=== PATIENT | female | born 1940 | race Caucasian/White ===

== ENCOUNTER 2025-01-25 12:40 | Emergency (ER) | payer MEDICARE, SELFPAY ==
[2025-01-25 12:42] VITALS: BP 138/78
--- NOTE | 2025-01-25 14:20 | ED.GENMED ---
History of Present Illness
General
Chief Complaint: Head Injury
Source: patient and family (daughter)
Time Seen by Provider: 01/25/25 14:00
History of Present Illness
History of Present Illness:
84-year-old female presents to the emergency room for evaluation after suffering a fall at home. Patient is the caregiver for her who has dementia. She was bending over to adjust his socks when she lost her balance and fell backwards
striking back of her head. She was complaining of occipital area discomfort as well as some neck pain. Patient does take Eliquis. 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
required 'shaving' of her skull'. 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 Her daughter states that the area was bleeding a bit more when
she first saw her at the house but now seems to be at its baseline level. Patient also complaining of some right-sided low back pain which has been present again due to activities of caring for her but this seems to worsen today. Daughter
states the patient has medication at home for this back pain which she does not take. Daughter also indicates that they have offered to have her parents move in with them to provide support but patient does not want to limit them and prefers to
care for her alone at home.
Phy Exam
Physical Exam
Physical Exam:
General: Awake, Alert, Oriented X3. High BMI. Appears chronically ill
Vitals: unremarkable
Head: The entire scalp has some hypertrophic skin and sloughing of skin with areas of oozing of blood. No laceration.
Eyes: Pupils equal, EOMI
Throat: Airway intact, no exudates
Neck: Trachea midline, tenderness palpation lower cervical spine
Lungs: Clear and equal b/l
Heart: Regular rate, no murmurs
Abd: Soft, Nontender, No pulsatile mass
Neuro: No focal weakness
Skin: Warm, dry, no rash
Extremities: pulses equal b/l, no edema
Course
Orders/Labs/Results
Orders:
Orders
01/25/25 12:54
CT Cervical Spine W/o Iv Contr Urgent
Comment:
Reason For Exam: fall
CT Head W/o Iv Contrast Urgent
Comment:
Reason For Exam: fall
Vital Signs
Initial and Last Documented VS:
Initial Vital Signs
Temp Pulse Resp BP Pulse Ox
97.4 F 58 18 138/78 99
01/25/25 12:42 01/25/25 12:42 01/25/25 12:42 01/25/25 12:42 01/25/25 12:42
Last Documented Vital Signs
Temp Pulse Resp BP Pulse Ox
98.5 F 82 20 136/81 96
01/25/25 14:47 01/25/25 14:47 01/25/25 14:47 01/25/25 14:47 01/25/25 14:47
MDM/Problems Addressed
Differential Diagnosis Includes:
Contusion, subdural, cervical spine fracture, cervical strain
MDM/Problems Addressed:
Patient presents after a fall striking the back of her head. CT of the head and cervical spine showed no acute abnormality. Patient does have some oozing from very spots on her scalp which is chronic due to radiation, Mohs procedure for squamous
cell carcinoma. Patient is at her baseline. She is stable for discharge home.
*Radiology
Radiology exam reviewed: radiology read reviewed
*Pulse Oximetry
Patient hypoxic: no
*Critical Care Note
Total Time (30-74mins, 75-104mins- exclusive of procedures): Not Applicable
ED Attending Note
-
Portions of this chart may have been created with voice recognition software.� Occasional wrong word or��sound alike� substitutions may have occurred due to the inherent limitations of voice recognition software.
Discharge Plan
Departure
Patient Disposition: Home (Routine Discharge)
Date of Disposition: 01/25/25
Time of Disposition: 15:10
Patient with high blood pressure during this ER visit?: No
Condition: Good
Discharge Problem:
Head injury, Cervical strain
Instructions: Head Injury in Adults (DC), Cervical Sprain ED
Prescriptions:
New
cyclobenzaprine 10 mg tablet
10 mg PO TID PRN (Reason: back pain) Qty: 14 0RF
Referrals:
Jenyn Dee MD [Family Provider] -
Interventions
Interventions:
*Risk Screen - Suicide Last Done: 01/25/25 12:42
*General Assessment Last Done: 01/25/25 12:42
*Neglect/Abuse Screening Last Done: 01/25/25 14:47
*ED- Fall Risk Assessment Last Done: 01/25/25 14:47
*ED COVID-19 Vaccine History Last Done: 01/25/25 14:47
*Nursing Disposition Last Done: 01/25/25 15:38
ED- Neurological Assessment Last Done: 01/25/25 14:47
ED-Skin Assessment Last Done: 01/25/25 14:47
Discharge Date and Time
Discharge Date/Time: 01/25/25 15:38
Print Language: SPANISH
[2025-01-25 14:47] VITALS: BP 136/81; BMI 30.7
== END 2025-01-25 15:38 | disposition home or self-care (01) ==
LOC: EMR 12:40
PROVIDERS: EMERGENCY PHYSICIAN Emergency Medicine; FAMILY PHYSICIAN Internal Medicine
DX: S09.90XA Unspecified injury of head, initial encounter (principal); S16.1XXA Strain of muscle, fascia and tendon at neck level, initial encounter; Y92.009 Unspecified place in unspecified non-institutional (private) residence as the place of occurrence of the external cause; C44.42 Squamous cell carcinoma of skin of scalp and neck
CPT/HCPCS: 99284; 70450; 72125

== ENCOUNTER 2025-02-14 10:17 | Emergency (ER) | payer MEDICARE, OTHER, SELFPAY ==
[2025-02-14 11:24] VITALS: BP 135/60
[2025-02-14] MEDS: TYLENOL 1000 MG PO (11:54)
[2025-02-14 12:00] VITALS: BP 141/72
[2025-02-14 12:21] LABS: % Basophils 0.8 % (0-2); % Eosinophils 2.2 % (0-6); % Immature Granulocytes 0.2 % (0-0.5); % Lymphocytes 34.5 % (20.5-51.1); % Monocytes 8.9 % (1.7-9.3); % Neutrophils 53.4 % (42.2-75.2); Absolute Eosinophils 0.1 10^3/uL (0-0.7); Absolute Lymphocytes 1.7 10^3/uL (1.2-3.4); Absolute Monocytes 0.4 10^3/uL (0.1-0.6); Absolute Neutrophils 2.7 10^3/uL (1.4-6.5); Mean Corp Hgb Conc. 33.3 g/dL (33.0-37.0); Mean Corpuscular Hgb 32.3 pg (27.0-31.0); Mean Corpuscular Volume 96.8 fL (81.0-99.0); Nucleated Red Blood Cells % 0 %; Platelet Count 150 10^3/uL (130-400); Red Blood Cell Count 4.03 10^6/uL (4.20-5.40); Red Cell Dist. Width 12.8 % (11.5-14.5)
[2025-02-14 12:26] LABS: INR 1.26
[2025-02-14 12:27] LABS: APTT 29.2 Sec (23.4-35.0)
[2025-02-14 12:59] LABS: Blood Urea Nitrogen 23 mg/dl (7-17); Calcium 9.2 mg/dl (8.4-10.2); Carbon Dioxide 28 mmol/L (22-30); Chloride 108 mmol/L (98-107); Glucose 105 mg/dl (70-99); Sodium 141 mmol/L (135-145); eGFR 49.86
--- NOTE | 2025-02-14 13:55 | ED.GENMED ---
History of Present Illness
General
Chief Complaint: Fall
Source: patient and family
Exam Limitations: none
Time Seen by Provider: 02/14/25 11:00
Nursing documentation reviewed up to this point in time: agreed with
Course
Orders/Labs/Results
Orders:
Orders
02/14/25 11:18
Vital Signs- Treatment ONCE
Frequency: Once
Comment: BP
02/14/25 11:20
CT Chest/abd/pel W Iv Cont Urgent
Comment:
Reason For Exam: R sided flank pain afer fall; on eliquis
Acetaminophen [Tylenol] 1,000 mg PO NOW STA
02/14/25 11:48
Complete Blood Count/With Diff Urgent
PTT Urgent
Prothrombin Time Urgent
02/14/25 12:30
Basic Metabolic Panel Urgent
02/14/25 14:30
Potassium Urgent
02/14/25 16:04
Diazepam [Valium] 2 mg PO NOW STA
Abnormal Lab Results
02/14/25 02/14/25
11:48 12:30
RBC 4.03 L 10^6/uL
(4.20-5.40)
MCH 32.3 H pg
(27.0-31.0)
PT 16.0 H Sec
(11.4-14.6)
Chloride 108 H mmol/L
(98-107)
BUN 23 H mg/dl
(7-17)
Creatinine 1.1 H mg/dL
(0.6-1.0)
Glucose 105 H mg/dl
(70-99)
02/14/25 11:48
Vital Signs
Initial and Last Documented VS:
Initial Vital Signs
Temp Pulse Resp Pulse Ox
36.7 C 57 16 96
02/14/25 10:25 02/14/25 10:25 02/14/25 10:25 02/14/25 10:25
Last Documented Vital Signs
Temp Pulse Resp BP Pulse Ox
36.7 C 82 20 140/72 98
02/14/25 10:25 02/14/25 15:03 02/14/25 15:03 02/14/25 15:03 02/14/25 15:03
MDM/Problems Addressed
Differential Diagnosis Includes:
see MDM
MDM/Problems Addressed:
Note:
CHIEF COMPLAINT(S)
Fall with resultant back and abdominal pain.
HISTORY OF PRESENT ILLNESS
The patient is an 84-year-old female who experienced a fall on Monday night when she tripped over a rug at home, landing predominantly on her knees. Her daughter, who witnessed the event, noted that she caught herself on a soft leather ottoman
before falling. The patient reports pain in the mid-back, which radiates around to the abdomen and worsens with movement, but not breathing. She describes, 'When I move, it goes around here and into my stomach.' The pain does not significantly
change with rest or deep breathing. This incident follows a previous fall approximately seven weeks earlier, which necessitated an emergency room visit and a computed tomography (CT) scan showing no acute intracranial bleeding. The patient is on
anticoagulation medication, Apixaban, due to a history of atrial fibrillation. Her recent medical history includes a craniectomy for a squamous cell carcinoma (skin cancer) on her head and subsequent radiation therapy. The patient is not on
chemotherapy. She has expressed concern about her inability to lift her right leg adequately due to pain and reports that pain increases when she attempts certain movements. Her pain was severe enough yesterday that she applied Lidocaine. She relies
on Tylenol for symptom management due to the sedative effects experienced previously with Tramadol.
ADDITIONAL HISTORY OBTAINED FROM SOURCES OTHER THAN THE PATIENT
The patients daughter, who was present during the visit, provided details of the fall, describing how the patient tripped and landed on her knees, whereas her upper body was cushioned by a soft leather ottoman.
CHRONIC MEDICAL CONDITIONS SIGNIFICANTLY AFFECTING CARE
- Atrial fibrillation managed with Apixaban.
- Recent postoperative and radiation therapy for squamous cell carcinoma.
- History of craniectomy.
SOCIAL DETERMINANTS AFFECTING HEALTH
The patient is a primary caregiver for her , who suffers from dementia, adding to her physical strain, especially when lifting him, which exacerbates her back pain.
REVIEW OF SYSTEMS
- Musculoskeletal: Reports back pain radiating to the abdomen, worsens with movement.
- Neurologic: Unable to adequately lift right leg without significant discomfort.
PHYSICAL EXAM
- Musculoskeletal: Pain noted in the mid-back radiating to the abdomen, particularly when pressure is applied.
- Neurologic: No mention of deficits, but the patient experiences pain upon attempting to move the right leg.
Nursing notes reviewed and vital signs reviewed.
PLAN
- Order a CT scan of the abdomen and pelvis to evaluate for possible internal bleeding or injury given her anticoagulation therapy.
- Suggest pain management with Extra Strength Tylenol due to tolerability over stronger medications such as Tramadol, which has been previously tried.
- Engage the patients assistance with repositioning in bed, aiming to improve comfort and stability during the stay.
DIFFERENTIAL DIAGNOSIS
The Differential Diagnosis includes, in no particular order and is not limited to:
1. Musculoskeletal strain or injury.
2. Vertebral compression fracture.
3. Abdominal hematoma due to anticoagulant therapy.
4. Intercostal muscle strain.
5. Lumbar radiculopathy.
6. Rib fracture.
7. Neuropathic pain due to thoracic nerve impingement.
8. Costochondritis.
9. Abdominal aortic aneurysm.
10. Herpes Zoster (shingles), without visible rash.
CARE-UPDATE
02/14/25 - 16:05
Noted that the patient�s creatinine level is slightly elevated at 1.1, which may indicate mild dehydration, though this could also be the patient�s baseline. The potassium level was not initially obtained but has since been redrawn. The CT scan
ruled out fractures or significant trauma, but incidentally found a lung nodule and coronary arMDMtery calcifications, warranting follow-up. Degenerative changes noted in the thoracic spine and pubic symphysis, with arthritis present in the lumbar
spine, may explain the patient�s pain and suggest a musculoskeletal etiology. The patient is advised to try a low dose of Valium (2 mg) for muscle relaxation in combination with Tylenol for pain management, especially before bedtime, with the
flexibility to adjust based on response and tolerance. Tramadol remains an alternative if Valium is ineffective, and the use of a walker is considered for added support during ambulation. The patient declined hospital admission and was instructed to
monitor symptoms, with a focus on the balance between pain relief and avoiding excessive sedation.
ED Attending Note
-
Portions of this chart may have been created with voice recognition software.� Occasional wrong word or��sound alike� substitutions may have occurred due to the inherent limitations of voice recognition software.
Discharge Plan
Departure
Patient Disposition: Home (Routine Discharge)
Date of Disposition: 02/14/25
Time of Disposition: 16:09
Patient with high blood pressure during this ER visit?: Yes
Condition: Fair
Covid-19: Not Applicable
Discharge Problem:
Fall, Flank pain, Musculoskeletal pain
Instructions: Preventing falls in adults, Flank pain - ED discharge instructions
Prescriptions:
New
diazepam [Valium] 2 mg tablet
2 mg PO TID PRN (Reason: muscle spasm) Qty: 10 0RF
No Action
cyclobenzaprine 10 mg tablet
10 mg PO TID PRN (Reason: back pain) Qty: 14 0RF
Referrals:
Jenny Dee MD [Family Provider, General] - Follow up in 2-3 days
Activity Restrictions/Additional Instructions:
Your CAT scan shows some incidental findings which were reviewed with you but significantly you do have arthritis in your lower thoracic and your upper lumbar and lower lumbar spine as well as your hips on both sides and your SI joints. This could
have been exacerbated when you had your fall. Try Tylenol 2 extra strength 3 times a day for the next 3 to 5 days. For pain control additionally you could try Valium 2 mg 2-3 times a day. This is a muscle relaxer and can cause drowsiness. Please
be aware of that. If it does not affect you at all and you have no relief of symptoms you can return to using your own tramadol but also be aware that that can cause drowsiness. Do not combine both medications as this can increase your fall risk.
Use your walker for the next couple days to make sure you can get around more stably.
Interventions
Interventions:
*Risk Screen - Suicide Last Done: 02/14/25 10:25
*Neglect/Abuse Screening Last Done: 02/14/25 10:25
*ED- Fall Risk Assessment Last Done: 02/14/25 10:58
ED-Musculoskeletal Assessment Last Done: 02/14/25 10:58
ED- Neurological Assessment Last Done: 02/14/25 10:58
ED-Skin Assessment Last Done: 02/14/25 10:58
Discharge Date and Time
Print Language: LUXEMBOURGER
[2025-02-14 15:03] VITALS: BP 140/72
[2025-02-14] MEDS: VALIUM 2 MG PO (16:13)
[2025-02-14 16:22] VITALS: BP 132/72
== END 2025-02-14 16:35 | disposition home or self-care (01) ==
LOC: EMR 10:17
PROVIDERS: Physician Assistant; EMERGENCY PHYSICIAN Emergency Medicine; FAMILY PHYSICIAN Internal Medicine
DX: R10.9 Unspecified abdominal pain (principal); M79.18 Myalgia, other site; W01.0XXA Fall on same level from slipping, tripping and stumbling without subsequent striking against object, initial encounter; F03.90 Unspecified dementia, unspecified severity, without behavioral disturbance, psychotic disturbance, mood disturbance, and anxiety; I48.91 Unspecified atrial fibrillation; Z79.01 Long term (current) use of anticoagulants; Z85.828 Personal history of other malignant neoplasm of skin; Z92.3 Personal history of irradiation
CPT/HCPCS: 99284; 71260; 74177; 80048; 85025; 85610; 85730; Q9967

== ENCOUNTER 2025-06-19 18:10 | Inpatient (IN) | payer MEDICARE, OTHER, SELFPAY ==
[2025-06-19] VITALS (10 sets, daily range): BP systolic 87–201; BP diastolic 40–136; BMI 43.1; BMI 42.1
--- NOTE | 2025-06-19 15:52 | ED.GENMED ---
History of Present Illness
General
Chief Complaint: Skin Problem
Source: patient and family
Exam Limitations: none
Time Seen by Provider: 06/19/25 14:47
Nursing documentation reviewed up to this point in time: agreed with
History of Present Illness
History of Present Illness:
Patient with history of multiple cellulitis of lower leg and lymphedema, presents to ED secondary to worsening right lower leg infection, despite taking 3 different antibiotics (Flagyl, ciprofloxacin, and doxycycline), as ordered by her primary care
physician x 6 days. Denies fever or chills. Denies nausea or vomiting. Patient reports decreased appetite. Patient states that her leg needed suture repair 2 weeks ago after she tripped and fell on the steps.
Past History
Past History
ED Past Medical History: Arrthythmia, CHF, HTN, Hypercholesterolemia and NIDDM
Social History
Tobacco: Non-smoker
Alcohol: None
Drug: None
Personal: Single
Living: with family
Review of Systems
Review of Systems
Allergies reviewed?: Yes
All Other Systems: ROS reviewed and negative except as documented in HPI and ROS
Constitutional: Reports no symptoms
ABD/GI: Reports no symptoms
Musculoskeletal: Reports no symptoms
Skin: Reports other (leg infection)
Neurological: Reports no symptoms
Phy Exam
Physical Exam
Physical Exam:
Physical Exam
General: mild distress, not acutely ill. afebrile
Head: nc/at. eomi
Neck: supple. no meningeal signs.
Abdomen: normal bowel sounds. not tender.
Neuro: alert and oriented x 3. no focal neurological deficits
Skin: RLE: along distal tibia, sutures in place with surrounding erythema/blister formation, along with minimal serosanguineous drainage.
Psychiatric: well kept. interactive and cooperative
Extremities: no edema. no calf tenderness.
Course
Orders/Labs/Results
Orders:
Orders
06/19/25 15:43
Complete Blood Count/With Diff Urgent
Comprehensive Metabolic Panel Urgent
Lactic Acid Q4H
Comment: CANCEL 2nd LACTIC ACID IF 1st LACTIC ACID IS LESS THAN 2
Blood Culture Q30M
JAMAL Source: Blood/Venous
Specimen Description:
Blood Culture Q30M
JAMAL Source: Blood/Venous
Specimen Description:
06/19/25 16:12
Vancomycin [Vancocin] 2,000 mg 0.9% Sodium Chloride 500 ml [Nss] 500 ml IV NOW
06/19/25 17:39
Admit/Transfer Patient As Directed
Co-Sign Provider:
Level of Care: Inpatient admission
Assign to:: Medical/Surgical
Physician / Group: Coleen
Diagnosis: Right lower extremity wound, cellulitis
Reason for Hospitalization: IV abx, surgical consult
Expected length of stay greater than two midnights?: Yes
ELOS- Estimated Length of Stay in days: 3
I certify the patient meets the requirements for IP care: Yes
PRN Pain Medication Management As Directed
May give lesser potent ordered pain med per pt: Yes
preference::
Protocol:: Medication orders for pain may be administered in a
manner that supports deferring to patient preference
when the pt is:
- Requesting an ordered lesser potent pain medication.
Least to most potent pain medications are defined
as: acetaminophen < NSAID < tramadol < opioids
(morphine, oxycodone, hydromorphone).
- Requesting a lesser dose of the same medication IF
ORDERED.
- Requesting a less intrusive route of administration
if both routes are prescribed by the provider (PO <
IV).
06/19/25 17:50
Code Status As Directed
Resuscitation Status: Full Code
Abnormal Lab Results
06/19/25
15:43
RBC 4.10 L 10^6/uL
(4.20-5.40)
MCH 32.0 H pg
(27.0-31.0)
BUN 24 H mg/dl
(7-17)
Creatinine 1.4 H mg/dL
(0.6-1.0)
Glucose 131 H mg/dl
(70-99)
06/19/25 15:43
06/19/25 15:43
Vital Signs
Initial and Last Documented VS:
Initial Vital Signs
Temp Pulse Resp BP Pulse Ox
98.1 F 58 16 137/91 98
06/19/25 12:55 06/19/25 12:55 06/19/25 12:55 06/19/25 12:55 06/19/25 12:55
Last Documented Vital Signs
Temp Pulse Resp BP Pulse Ox
98.1 F 59 16 118/40 97
06/19/25 12:55 06/19/25 17:39 06/19/25 17:39 06/19/25 19:00 06/19/25 19:00
MDM/Problems Addressed
MDM/Problems Addressed:
History and exam concerning for right lower leg cellulitis, failing outpatient therapy. Patient also may benefit from suture removal and wound debridement, during treatment via iv abx
*Pulse Oximetry
SaO2: 98
Oxygen Mode of Delivery: Room air
Patient hypoxic: no
*Critical Care Note
Total Time (30-74mins, 75-104mins- exclusive of procedures): Not Applicable
ED Attending Note
-
Portions of this chart may have been created with voice recognition software.� Occasional wrong word or��sound alike� substitutions may have occurred due to the inherent limitations of voice recognition software.
Discharge Plan
Departure
Patient Disposition: Admit
Date of Disposition: 06/19/25
Time of Disposition: 16:03
Admit to: Med/Surg
Presentation/result/management discussed w/ accepting MD/DO: Hospitalist
Discharge Problem:
Cellulitis of leg
Interventions
Interventions:
*Risk Screen - Suicide Last Done: 06/19/25 12:55
*General Assessment Last Done: 06/19/25 15:40
*Neglect/Abuse Screening Last Done: 06/19/25 12:55
*ED- Fall Risk Assessment Last Done: 06/19/25 15:40
*ED COVID-19 Vaccine History Last Done: 06/19/25 15:40
*ED Influenza Vaccine History Last Done: 06/19/25 15:40
ED-Skin Assessment Last Done: 06/19/25 16:49
[2025-06-19 15:55] LABS: Hematocrit 39.7 % (37.0-47.0); Hemoglobin 13.1 g/dL (12.0-16.0); Mean Corp Hgb Conc. 33.0 g/dL (33.0-37.0); Mean Corpuscular Volume 96.8 fL (81.0-99.0); Nucleated Red Blood Cells % 0 %; Platelet Count 194 10^3/uL (130-400); Red Cell Dist. Width 13.0 % (11.5-14.5)
[2025-06-19 16:11] LABS: ALT (SGPT) 28 U/L (0-35); AST (SGOT) 34 U/L (14-36); Albumin 3.9 g/dl (3.5-5.0); Alkaline Phosphatase 91 U/L (38-126); Blood Urea Nitrogen 24 mg/dl (7-17); Calcium 9.5 mg/dl (8.4-10.2); Carbon Dioxide 30 mmol/L (22-30); Chloride 102 mmol/L (98-107); Estimated Creatinine Clearance 39 ml/min; Glucose 131 mg/dl (70-99); Potassium 4.1 mmol/L (3.5-5.1); Sodium 138 mmol/L (135-145); Total Protein 6.9 g/dl (6.3-8.2); eGFR 37.33
[2025-06-19] MEDS: VANCOCIN 540 MG IV (16:29)
--- NOTE | 2025-06-19 16:38 | HPS.HSE ---
Addendum entered and electronically signed by Flaquito Horne MD 06/19/25 18:22:
This is an addendum to the H&P written by Danielle Nevarez on 06/19/2025. �Patient seen and examined independently with PA.
84-year-old female past medical history of paroxysmal atrial fibrillation on Eliquis, chronic HFpEF, hypertension, hyperlipidemia, diabetes, CKD 3, obesity, recent resection of squamous cell carcinoma of scalp status post radiation, presenting with
right lower extremity wound and infection.
She had a fall 2 weeks ago with injury of the right diaz on stairs with significant bleeding. �She was taken to [place] and got 17 stitches. �She saw her primary care physician last week and was started doxycycline, ciprofloxacin, and Flagyl.
�Patient with blisters on the right diaz and redness. �She was recommend to come to the emergency room by wound care. �No fever.
Patient with nonhealing wound/ blisters on the right diaz from trauma. �Unclear if truly infected as she received ample course of oral antibiotics.� Continue cefazolin. Hold Eliquis. �General surgery consulted for potential debridement. �Wound care
consulted.
Original Note:
Family Physician
-
Family Physician: NOT KNOW UNKNOWN - PT DOES
Chief Complaint
-
Right Lower Extremity Wound
History of Present Illness
Patient is a 84 y/o female past medical history of atrial fibrillation, heart failure, hypertension, hyperlipidemia, and diabetes who presents with right lower extremity wound. Patient states about 2 weeks ago she feel while going up some stairs.
She hit her leg on step cause a large laceration. She was taken to [facility] where she received 17 stitches to the area. Patient was started on doxycycline, ciprofloxacin and metronidazole on June 13 for cellulitis. Patient was seen
by visiting nurse today who expressed concern that the wound was looking worse. Patient presented to the emergency department for evaluation today. She denies fevers, sweats, or chills.
Medical History
Past Medical History
Past Medical History: Reports Other
Additional Past Medical History:
Paroxysmal Atrial Fibrillation
Chronic HFpEf
Essential Hypertension
Hyperlipidemia
Diabetes Mellitus, Diet-Controlled
CKD Stage IIIB
Squamous Cell Carcinoma of the Scalp s/p Resection and Radiation
Past Surgical History: Reports Other
Additional Past Surgical History:
Lung Hamartoma Removal
Wide Excision of Scalp for squamous cell carcinoma
Social History
Tobacco: Non-smoker
Family History
Family History: Not pertinent
Allergies / Home Medications
Allergies reflects when Allergies were last updated in [facility].
Home Medications with original date entered in [facility]
Allergy/Medication List:
Allergies
Allergy/AdvReac Type Severity Reaction Status Date / Time
IZAIAH Inhibitors Allergy Unknown Verified 06/19/25 13:00
clonidine Allergy Unknown Verified 06/19/25 13:00
cortisone Allergy Unknown Verified 06/19/25 13:00
diltiazem Allergy Unknown Verified 06/19/25 13:00
hydralazine Allergy Unknown Verified 06/19/25 13:00
minoxidil Allergy Unknown Verified 06/19/25 13:00
nifedipine Allergy Unknown Verified 06/19/25 13:00
Sulfa (Sulfonamide Allergy Unknown Verified 06/19/25 13:00
Antibiotics)
sulfamethoxazole (From Allergy Unknown Verified 06/19/25 13:00
Bactrim)
trimethoprim (From Bactrim) Allergy Unknown Verified 06/19/25 13:00
Home Medications
amiodarone 200 mg tablet 200 mg PO DAILY 06/19/25
apixaban 5 mg tablet (Eliquis) 5 mg PO BID 06/19/25
cholecalciferol (vitamin D3) 50 mcg (2,000 unit) tablet (Vitamin D3) 50 mcg PO DAILY 06/19/25
evolocumab 140 mg/mL subcutaneous pen injector (Repatha SureClick) 140 mg SC Q2W 06/19/25
furosemide 20 mg tablet 20 mg PO BID 06/19/25
losartan 100 mg tablet 50 mg PO DAILY 06/19/25
metoprolol succinate 50 mg tablet,extended release 24 hr 50 mg PO HS 06/19/25
spironolactone 25 mg tablet 25 mg PO QPM 06/19/25
Review of Systems
-
A 12 point ROS was completed and negative except as noted: Yes
Constitutional: Denies Fever
Skin: Reports See HPI
Physical Exam
Vital Signs
Vital Signs
Temp Pulse Resp BP Pulse Ox
98.1 F 59 18 136/59 98
06/19/25 12:55 06/19/25 15:40 06/19/25 15:40 06/19/25 15:40 06/19/25 15:58
Physical Exam
General: Comfortable and Conversant
HEENT: Anicteric and Moist mucous membranes
Respiratory: Clear and Non Labored Respirations
Cardiac: S1/S2 and Regular Rhythm
GI: Soft and Non Tender
Rectal: Deferred by Provider
Musculoskeletal: No Clubbing, No Cyanosis and Edema, Right Upper Extremity
Skin: Warm, Dry and Other (Laceration right diaz with sutures in place, noted blister which appears filled with blood, moderate surrounding erythema )
Neuro: Awake, Alert, Oriented and Nonfocal/grossly intact
Psych: Calm
Laboratory Results
-
06/19/25 15:43
06/19/25 15:43
Laboratory Results
Lactic Acid 1.0 mmol/L (0.7-2.0) 06/19/25 15:43
Total Bilirubin 0.7 mg/dl (0.2-1.3) 06/19/25 15:43
AST 34 U/L (14-36) 06/19/25 15:43
ALT 28 U/L (0-35) 06/19/25 15:43
Alkaline Phosphatase 91 U/L (38-126) 06/19/25 15:43
Data Reviewed
-
Lab Data: Labs Reviewed by me
Impression/Plan
-
Non-Healing Right Lower Extremity Wound with Mild RLE Cellulitis
-Consult General Surgery for possible debridement
-Consult Wound Care
-Continue Ancef
Paroxysmal Atrial Fibrillation s/p Ablation
-Hold Eliquis for possible debridement
-Continue amiodarone and metoprolol
Chronic HFpEF
-Echo March 2025: Mildly increased left ventricular wall thickness consistent with mild concetric hypertrophy. Normal left ventricular ejection fraction with EF 65%
-Continue furosemide and spironolactone
Essential Hypertension
-Continue losartan and metoprolol
Hyperlipidemia
-Patient maintained on Repatha as outpatient
Diabetes Mellitus, Diet-Controlled
-Check HgbA1c
-Monitor blood glucose BID
CKD Stage IIIB
-Creatinine appears to be close to baseline after review of records
-Continue to trend
Morbid Obesity due to Excess Calories
-Affects all aspects of care
Hx Squamous Cell Carcinoma of the Scalp s/p Resection and Radiation
DVT proph: SCDs
Code Status: Full Code
[2025-06-19] MEDS: TYLENOL 650 MG PO (20:46)
[2025-06-19] MEDS: LASIX PO (20:47)
[2025-06-19] MEDS: ALDACTONE 25 MG PO (20:47)
[2025-06-19] MEDS: TOPROL XL 50 MG PO (21:00)
[2025-06-19 21:01] LABS: Glucose - Point of Care 137 mg/dl (70-99)
[2025-06-19] MEDS: ANCEF 10 IV (22:45)
[2025-06-20] MEDS: ANCEF 10 IV ×3 (05:46→23:24)
[2025-06-20 06:00] VITALS: BMI 41.9
[2025-06-20 07:43] VITALS: BP 138/63
[2025-06-20 07:44] LABS: Glucose - Point of Care 101 mg/dl (70-99)
[2025-06-20] MEDS: PACERONE 200 MG PO (07:47)
[2025-06-20] MEDS: COZAAR 50 MG PO (07:47)
[2025-06-20] MEDS: LASIX 20 MG PO ×2 (07:47→16:16)
[2025-06-20 08:58] LABS: Hematocrit 36.3 % (37.0-47.0); Hemoglobin 12.0 g/dL (12.0-16.0); Mean Corp Hgb Conc. 33.1 g/dL (33.0-37.0); Mean Corpuscular Volume 98.4 fL (81.0-99.0); Platelet Count 168 10^3/uL (130-400); Red Cell Dist. Width 13.0 % (11.5-14.5)
[2025-06-20 09:35] LABS: Blood Urea Nitrogen 20 mg/dl (7-17); Calcium 8.8 mg/dl (8.4-10.2); Carbon Dioxide 29 mmol/L (22-30); Chloride 106 mmol/L (98-107); Estimated Creatinine Clearance 41 ml/min; Glucose 101 mg/dl (70-99); Potassium 3.8 mmol/L (3.5-5.1); Sodium 139 mmol/L (135-145); eGFR 40.80
[2025-06-20 10:02] LABS: Glycohemoglobin (HgbA1c) 5.6 % (4.0-5.6)
[2025-06-20 11:22] LABS: Glucose - Point of Care 122 mg/dl (70-99)
--- NOTE | 2025-06-20 11:37 | WOUNDNOTE ---
[facility] RN NOTE: Reviewed chart and met with patient. Spoke to RN Alannah who said wound cultures were taken this morning by surgical service. Wound is friable, painful. Patient declining pain medications b/c she is afraid they will make her go into A-fib.
Wound cleaned with saline and adaptic and ABD applied. Confirmed wound orders for wound care and IZAIAH wrap with Hospitalist. Recommend follow up at [facility]. Patient said she is current with VN. Sacrum and heels intact. Patient on Versa Care Accumax and
turns self, ambulates. Will update care plan and follow as needed.
--- NOTE | 2025-06-20 11:39 | CON.GS ---
Addendum entered and electronically signed by Clint Mcgregor MD 06/20/25 12:07:
I saw and examined the patient.
The Traffic Administrator's note was reviewed and I agree with the note.
Comment: Sutures removed, no caesar pus, wund is superficial, some skin slough was gently debrided, culture obtained but may be of limited value. petroleum gauze, abd pain, izaiah wrap dressing applied. Cont local wound care and follow Cx. An area
inferior to the wound is still demarcating, this may ultimately require further debridement though this may be amenable to outpt mgmt at wound care ctr. Wound check tomorrow. IV abx.
Original Note:
Consultation
-
Date/Time Consultation Performed: 06/20/25 5612
Medical History
-
Chief Complaint: pain to wound
History of Present Illness:
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 She
was taken by ambulance to [facility] at [place] and the laceration was sutured. Last week, she developed erythema to the area and saw her PCP who prescribed 3 different antibiotics with doxycycline, ciprofloxacin and flagyl for cellulitis. She was being
followed by a visiting nurse for wound care and it was recommended that she present for evaluation as she had continued erythema. The wound is quite tender on exam with nylon sutures still present. Erythematous and edematous with necrotic skin near
suture line noted but without purulent drainage. She denies fevers or chills. She has been having diarrhea since prior to presentation. She denies n/v.
Past Medical History
Past Medical History: Arrhythmias (afib), Cancer (squamous cell of the scalp s/p extensive resection and xrt), CHF, NIDDM and Renal Failure (ckd stage 3)
Past Surgical History: Other (Wide Excision of Scalp for squamous cell carcinoma)
Social History
Tobacco: Non-Smoker
Alcohol: None
Living: Other (daughter is staying with patient)
Family History
Family History: Reviewed & Not Pertinent
Allergies / Home Medications
Allergy/AdvReac Type Severity Reaction Status Date / Time
IZAIAH Inhibitors Allergy Unknown Verified 06/19/25 13:00
clonidine Allergy Unknown Verified 06/19/25 13:00
cortisone Allergy Unknown Verified 06/19/25 13:00
diltiazem Allergy Unknown Verified 06/19/25 13:00
hydralazine Allergy Unknown Verified 06/19/25 13:00
minoxidil Allergy Unknown Verified 06/19/25 13:00
nifedipine Allergy Unknown Verified 06/19/25 13:00
Sulfa (Sulfonamide Allergy Unknown Verified 06/19/25 13:00
Antibiotics)
sulfamethoxazole (From Allergy Unknown Verified 06/19/25 13:00
Bactrim)
trimethoprim (From Bactrim) Allergy Unknown Verified 06/19/25 13:00
�Medication �Instructions �Recorded �Confirmed �Type
amiodarone 200 mg tablet 200 mg PO DAILY 06/19/25 06/19/25 History
apixaban 5 mg tablet (Eliquis) 5 mg PO BID 06/19/25 06/19/25 History
cholecalciferol (vitamin D3) 50 50 mcg PO DAILY 06/19/25 06/19/25 History
mcg (2,000 unit) tablet (Vitamin
D3)
evolocumab 140 mg/mL subcutaneous 140 mg SC Q2W 06/19/25 06/19/25 History
pen injector (Repatha SureClick)
furosemide 20 mg tablet 20 mg PO BID 06/19/25 06/19/25 History
losartan 100 mg tablet 50 mg PO DAILY 06/19/25 06/19/25 History
metoprolol succinate 50 mg 50 mg PO HS 06/19/25 06/19/25 History
tablet,extended release 24 hr
spironolactone 25 mg tablet 25 mg PO QPM 06/19/25 06/19/25 History
Review of Systems
-
History Source: Patient
All other systems: Negative unless noted
A 10 point review of systems was completed, and was negative except as per HPI.
Physical Exam
Vital Signs
Temp Pulse Resp BP Pulse Ox
97.5 F 58 14 138/63 98
06/20/25 07:43 06/20/25 07:47 06/20/25 07:43 06/20/25 07:47 06/20/25 07:43
06/19/25 06/20/25 06/21/25
06:59 06:59 06:59
Actual Weight 114.334 kg
Body Mass Index (BMI) 41.9
Lab Results
06/20/25 07:50
06/20/25 07:50
WBC 5.3 10^3/uL (4.8-10.8) 06/20/25 07:50
Hgb 12.0 g/dL (12.0-16.0) 06/20/25 07:50
Hct 36.3 % (37.0-47.0) L 06/20/25 07:50
Plt Count 168 10^3/uL (130-400) 06/20/25 07:50
Abs Immat Gran (auto) 0.0 10^3/uL (0-0.05) 06/19/25 15:43
Neutrophils % 67.0 % (42.2-75.2) 06/19/25 15:43
Physical Exam
General: Well Developed and Well Nourished
HEENT: Other (scarring/missing hair)
GI: Soft and Non Tender
Skin: Warm and Other (skin laceration overlying right diaz with multiple interrupted nylon sutures present, erythema, edema and necrotic skin present)
Neuro: Awake, Alert and AO x 3
Psych: Calm
Data Reviewed
-
Labs: Labs Reviewed by me, Discussed with Physician and Discussed with Patient
Old Records: Reviewed
Assessment / Plan
-
Ms Curtis is an 84 yo female with a h/o afib on Eliquis, HfpEF, and DM who fell 2 weeks ago while walking up steps suffered a skin laceration. She was taken by ambulance to [facility] at [place] and the laceration was sutured. Last week, she developed
erythema to the area and saw her PCP who prescribed 3 different antibiotics with doxycycline, ciprofloxacin and flagyl for cellulitis. She has since developed diarrhea with persistent erythema. Afebrile. VSS. No leukocytosis. Blood cx with NGTD.
Plan:
Sutures removed at bedside with bedside debridement of a portion of the necrotic skin at the distal wound edge
May need future debridement of skin, anticipate as an outpatient as the wound progresses
Culture taken from wound, although no significant purulence noted
Local wound care with petroleum gauze dressing
Will need follow up as outpatient with surgery/wound care clinic. Would continue with [facility] upon d/c as well.
Continue IV abx and follow for improvement
Send C-diff given ongoing diarrhea/abx use
--- NOTE | 2025-06-20 12:14 | WOUNDNOTE ---
RIGHT LEG WOUND
--- NOTE | 2025-06-20 12:14 | WOUNDNOTE ---
RIGHT LEG WOUND
--- NOTE | 2025-06-20 12:46 | CM ---
Addendum entered by Ana Hughes 06/20/25 13:20:
[facility] has already been in touch with pt about resuming care. will put referral in [facility].
Plan: home with resumption of care with [facility].
Original Note:
IA completed, IMM given to pt and placed on chart. Pt lives alone in a single story home with 2 steps from the garage into the home. Independent at home. No hx of SNF or home O2. DME: rolling walker, SPC, 2 wheelchairs, grab bars in the shower and
toilet rails. No insecurities identified. Confirmed PCP, rx, insurance and drug coverage. Is current with [facility] for wound care. The next VN appt is scheduled for Monday
On IV ABXs, seen by surgery who debrided the wound; pending BC and wound culture. Seen by wound care
PCP:Jenny Dee
Rx: [facility] in [place]
--- NOTE | 2025-06-20 13:41 | W.PN.HOSP.TC ---
Today's Communication/Plan
-
Wound care
IV antibiotics
Stool for C. difficile
Assessment / Plan
Assessment / Plan
Impression
Infected right lower extremity wound with cellulitis
Conditions prior to admission:
Paroxysmal atrial fibrillation
Anticoagulation with apixaban
Chronic CHF preserved EF
Essential hypertension
Dyslipidemia
Prediabetes
CKD stage IIIb
Morbid obesity due to excessive calories with BMI of 41
History of squamous cell carcinoma of the scalp status postresection and radiation treatment
Plan:
Right lower extremity traumatic (status post 4) wound with suture dehiscence and cellulitis.
Afebrile nontoxic-appearing with no symptoms of systemic infection.
Nonhealing wound despite of multiple antibiotics at home.
Surgery input appreciated.
Sutures removed with partial wound debridement on 06/20.
Wound culture pending (likely limited utility)
Continue antibiotics: Cefazolin. Status post single dose of vancomycin in ED
Continue wound care
Plan for additional debridement on 06/21.
Diarrhea
Check stool for C. difficile
Paroxysmal Atrial Fibrillation s/p Ablation
-Hold Eliquis for possible debridement
-Continue amiodarone and metoprolol
Chronic HFpEF
-Echo March 2025: Mildly increased left ventricular wall thickness consistent with mild concetric hypertrophy. Normal left ventricular ejection fraction with EF 65%
-Continue furosemide and spironolactone
Essential Hypertension
-Continue losartan and metoprolol
Hyperlipidemia
-Patient maintained on Repatha as outpatient
Diabetes Mellitus, Diet-Controlled
-Check HgbA1c 5.6
-Monitor blood glucose BID
CKD Stage IIIB
-Creatinine appears to be close to baseline after review of records
-Continue to trend
Morbid Obesity due to Excess Calories
-Affects all aspects of care
Hx Squamous Cell Carcinoma of the Scalp s/p Resection and Radiation
DVT proph: SCDs
Code Status: Full Code
Anticipated Discharge: 24 - 48 hours
Subjective/Interval History
-
Date of Service: June 20, 2025
Objective Data
-
Labs:
Laboratory Results
06/20/25
07:50
WBC 5.3
Hgb 12.0
Hct 36.3 L
Plt Count 168
Sodium 139
Potassium 3.8
Chloride 106
Carbon Dioxide 29
BUN 20 H
Creatinine 1.3 H
Glucose 101 H
Calcium 8.8
Vital Signs:
Vital Signs
Temp Pulse Resp BP Pulse Ox
97.5 F 58 14 138/63 98
06/20/25 07:43 06/20/25 07:47 06/20/25 07:43 06/20/25 07:47 06/20/25 07:43
I&O
06/19/25 06/20/25 06/21/25
06:59 06:59 06:59
Intake Total 480 / 480
Balance 480 / 480
Physical Exam
-
General: Well Developed and No Apparent Distress
HEENT: Normocephalic, Atraumatic and Moist Mucous Membranes
Respiratory: Clear to Auscultation
Cardiac: Regular Rhythm and S1/S2; Negative Murmur, Rub or Gallop
GI: Soft, Nontender, Nondistended and Normal Bowel Sounds; Negative Organomegaly
Rectal: Deferred by Provider
Musculoskeletal: No Clubbing, No Cyanosis and No Edema
Skin: Negative Rash
Neuro: Nonfocal/Grossly Intact
[2025-06-20 15:26] VITALS: BP 134/65
[2025-06-20 16:05] VITALS: BMI 41.9
[2025-06-20] MEDS: ROXICODONE 5 MG PO (16:14)
[2025-06-20] MEDS: ALDACTONE 25 MG PO (16:16)
[2025-06-20 16:19] LABS: Glucose - Point of Care 137 mg/dl (70-99)
[2025-06-20 21:09] LABS: Glucose - Point of Care 111 mg/dl (70-99)
[2025-06-20] MEDS: ROXICODONE PO (23:23)
[2025-06-20 23:24] VITALS: BP 120/64
[2025-06-20] MEDS: TOPROL XL 50 MG PO (23:24)
[2025-06-21] MEDS: ANCEF 10 IV ×3 (05:59→22:17)
[2025-06-21 07:26] LABS: Glucose - Point of Care 101 mg/dl (70-99)
[2025-06-21 08:45] VITALS: BP 132/59
[2025-06-21 08:46] VITALS: BMI 42.3
[2025-06-21] MEDS: PACERONE 200 MG PO (08:49)
[2025-06-21] MEDS: LASIX 20 MG PO ×2 (08:49→15:57)
[2025-06-21] MEDS: COZAAR 50 MG PO (08:50)
[2025-06-21 12:28] LABS: Glucose - Point of Care 112 mg/dl (70-99)
--- NOTE | 2025-06-21 12:58 | W.PN.GS2 ---
Today's Communication / Plan
-
IV abx
Local wound care
Assessment / Plan
-
Ms Curtis is an 84 yo female with a h/o afib on Eliquis, HfpEF, and DM who fell 2 weeks ago while walking up steps suffered a skin laceration. She was taken by ambulance to [facility] at [place] and the laceration was sutured. Last week, she developed
erythema to the area and saw her PCP who prescribed 3 different antibiotics with doxycycline, ciprofloxacin and flagyl for cellulitis.
Afebrile. VSS. Blood cx with NGTD.
Sutures removed with debridement of necrotic skin on 06/20
Wound cx pending, no organisms seen on prelim. No purulence noted at time of cx so may be of limited value
Erythema without much improvement
C-diff neg
Plan:
Local wound care with petroleum gauze dressing
ABX as per primary team, edema improved but with persistent erythema on today's exam, site marked
An area inferior to the wound is still demarcating, this may ultimately require further debridement but likely as an outpatient
Subjective Data
-
Date of Service: June 21, 2025
Pt seen and examined at bedside with Dr. Daugherty. Notes her ankle is still quite tender. Notes less edema.
Objective Data
-
Intake and Output
06/20/25 06/21/25 06/22/25
06:59 06:59 06:59
Intake Total 480 / 480 240 / 240
Balance 480 / 480 240 / 240
Intake:
Oral fluids 480 / 480 240 / 240
Other:
Number of approximated MODERATE 2 3
amounts of urine
Number of approximated LARGE 2
amounts of urine
Vital Signs
Temp Pulse Resp BP Pulse Ox
97.8 F 59 16 132/59 96
06/21/25 08:45 06/21/25 08:49 06/21/25 08:45 06/21/25 08:49 06/21/25 10:52
Lab Results
06/20/25 07:50
06/20/25 07:50
Calcium 8.8 mg/dl (8.4-10.2) 06/20/25 07:50
Total Bilirubin 0.7 mg/dl (0.2-1.3) 06/19/25 15:43
AST 34 U/L (14-36) 06/19/25 15:43
ALT 28 U/L (0-35) 06/19/25 15:43
Alkaline Phosphatase 91 U/L (38-126) 06/19/25 15:43
Total Protein 6.9 g/dl (6.3-8.2) 06/19/25 15:43
Albumin 3.9 g/dl (3.5-5.0) 06/19/25 15:43
Physical Exam
-
NAD
LLE with erythema near prior suture line, some residual necrotic skin present. Edema improved.
--- NOTE | 2025-06-21 13:18 | W.PN.HOSP.TC ---
Today's Communication/Plan
-
Denies IV antibiotics, wound care. Follow-up wound cultures.
Restart Eliquis.
Assessment / Plan
Assessment / Plan
Impression
Infected right lower extremity wound with cellulitis
Conditions prior to admission:
Paroxysmal atrial fibrillation
Anticoagulation with apixaban
Chronic CHF preserved EF
Essential hypertension
Dyslipidemia
Prediabetes
CKD stage IIIb
Morbid obesity due to excessive calories with BMI of 41
History of squamous cell carcinoma of the scalp status postresection and radiation treatment
Plan:
Right lower extremity traumatic (status post 4) wound with suture dehiscence and cellulitis.
Afebrile nontoxic-appearing with no symptoms of systemic infection.
Nonhealing wound despite of multiple antibiotics at home.
Surgery input appreciated.
Sutures removed with partial wound debridement on 06/20.
Wound culture pending (likely limited utility)
Continue antibiotics: Cefazolin. Status post single dose of vancomycin in ED
Continue wound care
Looks like she may need additional debridement as OP.
Diarrhea
- neg C. difficile
Paroxysmal Atrial Fibrillation s/p Ablation
- Since no plans for immediate debridement will restart Eliquis
-Continue amiodarone and metoprolol
Chronic HFpEF
-Echo March 2025: Mildly increased left ventricular wall thickness consistent with mild concetric hypertrophy. Normal left ventricular ejection fraction with EF 65%
-Continue furosemide and spironolactone
Essential Hypertension
-Continue losartan and metoprolol
Hyperlipidemia
-Patient maintained on Repatha as outpatient
Diabetes Mellitus, Diet-Controlled
-Check HgbA1c 5.6
-Monitor blood glucose BID
CKD Stage IIIB
-Creatinine appears to be close to baseline after review of records
-Continue to trend
Morbid Obesity due to Excess Calories
-Affects all aspects of care
Hx Squamous Cell Carcinoma of the Scalp s/p Resection and Radiation
DVT proph: SCDs
Code Status: Full Code
Anticipated Discharge: 24 - 48 hours
Subjective/Interval History
-
Date of Service: June 21, 2025
Patient is a dressing change with the surgical team. Right leg swelling is improved.
Right leg stings at time. No fever chills.
Denies any nausea. Wants her diet possible changed to regular diet. She says she has diet controlled diabetes mellitus.
Objective Data
-
Vital Signs:
Vital Signs
Temp Pulse Resp BP Pulse Ox
97.8 F 59 16 132/59 96
06/21/25 08:45 06/21/25 08:49 06/21/25 08:45 06/21/25 08:49 06/21/25 10:52
I&O
06/20/25 06/21/25 06/22/25
06:59 06:59 06:59
Intake Total 480 / 480 240 / 240
Balance 480 / 480 240 / 240
Physical Exam
-
General: Comfortable
Respiratory: Non Labored Respirations; Negative Accessory Resp Muscle Use
Cardiac: Regular Rhythm and S1/S2; Negative Tachycardic
GI: Soft
Neuro: AO x 3
Psych: Calm; Negative Confused
Data Reviewed
-
Labs: Labs Reviewed by me
[2025-06-21] MEDS: FLUSH (NSS) 1 FLUSH IV (13:40)
[2025-06-21 15:51] VITALS: BP 135/77
[2025-06-21 16:57] LABS: Glucose - Point of Care 123 mg/dl (70-99)
[2025-06-21] MEDS: ALDACTONE 25 MG PO (17:08)
[2025-06-21 21:33] LABS: Glucose - Point of Care 97 mg/dl (70-99)
[2025-06-21] MEDS: ELIQUIS 5 MG PO (22:17)
[2025-06-21] MEDS: TOPROL XL 50 MG PO (22:17)
[2025-06-21] MEDS: ROXICODONE 5 MG PO (22:20)
[2025-06-21 23:21] VITALS: BP 107/45
[2025-06-22 06:00] VITALS: BMI 42.3
[2025-06-22] MEDS: ANCEF 10 IV ×3 (06:37→21:21)
[2025-06-22 07:35] VITALS: BP 122/62
[2025-06-22 07:38] LABS: Glucose - Point of Care 105 mg/dl (70-99)
[2025-06-22] MEDS: LASIX 20 MG PO ×2 (08:40→16:56)
[2025-06-22] MEDS: COZAAR 50 MG PO (08:40)
[2025-06-22] MEDS: ELIQUIS 5 MG PO ×2 (08:40→20:08)
[2025-06-22] MEDS: PACERONE 200 MG PO (08:40)
--- NOTE | 2025-06-22 12:52 | W.PN.HOSP.TC ---
Today's Communication/Plan
-
Follow surgical input
Consider switching to IV Zosyn if no improvement in erythema
MRSA screen
Assessment / Plan
Assessment / Plan
Impression
Infected right lower extremity wound with cellulitis
Conditions prior to admission:
Paroxysmal atrial fibrillation
Anticoagulation with apixaban
Chronic CHF preserved EF
Essential hypertension
Dyslipidemia
Prediabetes
CKD stage IIIb
Morbid obesity due to excessive calories with BMI of 41
History of squamous cell carcinoma of the scalp status postresection and radiation treatment
Plan:
Right lower extremity traumatic (status post 4) wound with suture dehiscence and cellulitis.
Afebrile nontoxic-appearing with no symptoms of systemic infection.
Nonhealing wound despite of multiple antibiotics at home.
Surgery input appreciated.
Sutures removed with partial wound debridement on 06/20.
Wound culture shows ACADEMIC ADVISOR which doesnt help . Check MRSA screen
If the erythema doent improve will switch to IV Zosyn.
Continue wound care
Surgery following
Diarrhea
- neg C. difficile
Paroxysmal Atrial Fibrillation s/p Ablation
- Since no plans for immediate debridement restarted Eliquis
-Continue amiodarone and metoprolol
Chronic HFpEF
-Echo March 2025: Mildly increased left ventricular wall thickness consistent with mild concetric hypertrophy. Normal left ventricular ejection fraction with EF 65%
-Continue furosemide and spironolactone
Essential Hypertension
-Continue losartan and metoprolol
Hyperlipidemia
-Patient maintained on Repatha as outpatient
Diabetes Mellitus, Diet-Controlled
-Check HgbA1c 5.6
CKD Stage IIIB
-Creatinine appears to be close to baseline after review of records
-Continue to trend
Morbid Obesity due to Excess Calories
-Affects all aspects of care
Hx Squamous Cell Carcinoma of the Scalp s/p Resection and Radiation
DVT proph: SCDs
Code Status: Full Code
Anticipated Discharge: > 48 hours
Subjective/Interval History
-
Date of Service: June 22, 2025
The wound still stings today. Swelling is present but less prominent. No fever or chills.
Loose stools ongoing-small amounts. No nausea vomiting. No abdominal pain.
No shortness of breath or chest pain.
Objective Data
-
Vital Signs:
Vital Signs
Temp Pulse Resp BP Pulse Ox
98.3 F 63 20 122/62 99
06/22/25 07:35 06/22/25 07:35 06/22/25 07:35 06/22/25 07:35 06/22/25 07:35
I&O
06/21/25 06/22/25 06/23/25
06:59 06:59 06:59
Intake Total 240 / 240 480 / 480
Balance 240 / 240 480 / 480
Physical Exam
-
General: Comfortable
Respiratory: Non Labored Respirations; Negative Accessory Resp Muscle Use
Cardiac: Regular Rhythm and S1/S2; Negative Tachycardic
Musculoskeletal: Other (right leg in dressing)
Neuro: AO x 3
Psych: Calm
Data Reviewed
-
Labs: Labs Reviewed by me
[2025-06-22] MEDS: VISBIOME 1 CAP PO (14:04)
[2025-06-22 15:30] VITALS: BP 119/45
[2025-06-22 16:49] LABS: Glucose - Point of Care 146 mg/dl (70-99)
[2025-06-22] MEDS: ALDACTONE 25 MG PO (17:40)
[2025-06-22] MEDS: TOPROL XL 50 MG PO (21:15)
[2025-06-22] MEDS: ROXICODONE 5 MG PO (22:48)
[2025-06-22 23:53] VITALS: BP 112/44
[2025-06-23 06:00] VITALS: BMI 42.3
[2025-06-23] MEDS: COZAAR 50 MG PO (08:00)
[2025-06-23] MEDS: ANCEF 10 IV ×3 (08:00→21:34)
[2025-06-23] MEDS: ELIQUIS 5 MG PO ×2 (08:01→20:43)
[2025-06-23] MEDS: LASIX 20 MG PO ×2 (08:01→16:35)
[2025-06-23] MEDS: PACERONE 200 MG PO (08:01)
[2025-06-23] MEDS: VISBIOME 1 CAP PO (08:01)
[2025-06-23 08:34] VITALS: BP 145/65
[2025-06-23] MEDS: TYLENOL 650 MG PO ×2 (08:57→20:44)
[2025-06-23 09:15] LABS: Hematocrit 36.8 % (37.0-47.0); Hemoglobin 11.6 g/dL (12.0-16.0); Mean Corp Hgb Conc. 31.5 g/dL (33.0-37.0); Mean Corpuscular Volume 100.8 fL (81.0-99.0); Platelet Count 156 10^3/uL (130-400); Red Cell Dist. Width 13.1 % (11.5-14.5)
[2025-06-23 10:06] LABS: Blood Urea Nitrogen 23 mg/dl (7-17); Calcium 8.8 mg/dl (8.4-10.2); Carbon Dioxide 30 mmol/L (22-30); Chloride 102 mmol/L (98-107); Estimated Creatinine Clearance 45 ml/min; Glucose 97 mg/dl (70-99); Potassium 4.1 mmol/L (3.5-5.1); Sodium 136 mmol/L (135-145); eGFR 44.91
[2025-06-23] MEDS: ADACEL 0.5 ML IM (10:40)
--- NOTE | 2025-06-23 10:54 | W.PN.GS2 ---
Addendum entered and electronically signed by Clint Mcgregor MD 06/25/25 09:31:
CDI query: excisional debridement was performed with scissors
Addendum entered and electronically signed by Walter Jorge MD 06/23/25 13:56:
I saw and examined the patient independently.
The Obstetrics Nurse's note was reviewed and I agree with the note, assessment and plan except where noted below.
Comment: This is an 84-year-old female who presents with a traumatic wound to her right lower extremity, shallow with surrounding cellulitis that appears to be improved. It was cleaned by general surgery last week. On exam today there is still
some superficial necrosis, this will slough off with time, the surrounding skin does look mildly erythematous but overall improving. We did get a CT of the right lower extremity to rule out any additional collections. I reviewed these images
myself and it showed no abscess or underlying osteomyelitis. There is some superficial inflammation consistent with cellulitis.
Continue IV antibiotics, can transition to oral per primary.
Wound care: Continue with Adaptic or preferably Santyl dressing followed by gauze, ABD followed by an Tyron wrap.
Activity as able. Keep leg elevated as much as possible.
Patient to follow-up with Dr. Mcgregor as needed.
General Surgery will sign off, please call with any questions or concerns.
Original Note:
Today's Communication / Plan
-
check CT RLE
Assessment / Plan
-
Ms Curtis is an 84 yo female with a h/o afib on Eliquis, HfpEF, and DM who fell 2 weeks ago while walking up steps suffered a skin laceration. She was taken by ambulance to [facility] at [place] and the laceration was sutured. Last week, she developed
erythema to the area and saw her PCP who prescribed 3 different antibiotics with doxycycline, ciprofloxacin and flagyl for cellulitis.
Afebrile. VSS. Blood cx with NGTD.
Sutures removed with debridement of necrotic skin on 06/20
Wound cx with coag neg staph. No purulence noted at time of cx so may be of limited value
Some improvement in erythema but still quite tender to site
Plan:
Local wound care with nonadherent gauze dressing
ABX as per primary team
Given ongoing pain, will check CT of her RLE to further evaluate
Subjective Data
-
Date of Service: June 23, 2025
Pt seen and examined at bedside with Dr. Jorge. Continued pain to the RLE. Notes swelling improved.
Objective Data
-
Intake and Output
06/22/25 06/23/25 06/24/25
06:59 06:59 06:59
Intake Total 480 / 480 600 / 600
Balance 480 / 480 600 / 600
Intake:
Oral fluids 480 / 480 600 / 600
Other:
Number of approximated MODERATE 2
amounts of urine
Number of approximated LARGE 2 1
amounts of urine
Vital Signs
Temp Pulse Resp BP Pulse Ox
97.5 F 55 18 145/65 98
06/23/25 08:34 06/23/25 08:34 06/23/25 08:34 06/23/25 08:34 06/23/25 08:34
Lab Results
06/23/25 08:39
06/23/25 08:39
Calcium 8.8 mg/dl (8.4-10.2) 06/23/25 08:39
Total Bilirubin 0.7 mg/dl (0.2-1.3) 06/19/25 15:43
AST 34 U/L (14-36) 06/19/25 15:43
ALT 28 U/L (0-35) 06/19/25 15:43
Alkaline Phosphatase 91 U/L (38-126) 06/19/25 15:43
Total Protein 6.9 g/dl (6.3-8.2) 06/19/25 15:43
Albumin 3.9 g/dl (3.5-5.0) 06/19/25 15:43
Physical Exam
-
NAD
RLE with erythema near prior suture line, some residual necrotic skin present. Edema improved.
[2025-06-23 15:33] VITALS: BP 110/47
--- NOTE | 2025-06-23 15:43 | W.PN.HOSP.TC ---
Today's Communication/Plan
-
Continue current antibiotics for another 24 hours
Continue wound care
Assessment / Plan
Assessment / Plan
Impression
Infected right lower extremity wound with cellulitis
Conditions prior to admission:
Paroxysmal atrial fibrillation
Anticoagulation with apixaban
Chronic CHF preserved EF
Essential hypertension
Dyslipidemia
Prediabetes
CKD stage IIIb
Morbid obesity due to excessive calories with BMI of 41
History of squamous cell carcinoma of the scalp status postresection and radiation treatment
Plan:
Right lower extremity traumatic (status post 4) wound with suture dehiscence and cellulitis.
Afebrile nontoxic-appearing with no symptoms of systemic infection.
Nonhealing wound despite of multiple antibiotics at home.
Surgery input appreciated.
Sutures removed with partial wound debridement on 06/20.
Wound culture shows [employer] which doesnt help . MRSA screen negative
CT scan on 06/23 with no collection no osteomyelitis
Wound/cellulitis improved with erythema and induration away from demarcation zone
Continue wound care
Surgery following
Diarrhea
- neg C. difficile
Paroxysmal Atrial Fibrillation s/p Ablation
- Since no plans for immediate debridement restarted Eliquis
-Continue amiodarone and metoprolol
Chronic HFpEF
-Echo March 2025: Mildly increased left ventricular wall thickness consistent with mild concetric hypertrophy. Normal left ventricular ejection fraction with EF 65%
-Continue furosemide and spironolactone
Essential Hypertension
-Continue losartan and metoprolol
Hyperlipidemia
-Patient maintained on Repatha as outpatient
Diabetes Mellitus, Diet-Controlled
-Check HgbA1c 5.6
CKD Stage IIIB
-Creatinine appears to be close to baseline after review of records
-Continue to trend
Morbid Obesity due to Excess Calories
-Affects all aspects of care
Hx Squamous Cell Carcinoma of the Scalp s/p Resection and Radiation
DVT proph: SCDs
Code Status: Full Code
Anticipated Discharge: 24 - 48 hours
Subjective/Interval History
-
Date of Service: June 23, 2025
Objective Data
-
Labs:
Laboratory Results
06/23/25
08:39
WBC 4.8
Hgb 11.6 L
Hct 36.8 L
Plt Count 156
Sodium 136
Potassium 4.1
Chloride 102
Carbon Dioxide 30
BUN 23 H
Creatinine 1.2 H
Glucose 97
Calcium 8.8
Vital Signs:
Vital Signs
Temp Pulse Resp BP Pulse Ox
97.4 F 59 18 110/47 98
06/23/25 15:33 06/23/25 15:33 06/23/25 15:33 06/23/25 15:33 06/23/25 15:33
I&O
06/22/25 06/23/25 06/24/25
06:59 06:59 06:59
Intake Total 480 / 480 600 / 600
Balance 480 / 480 600 / 600
Physical Exam
-
General: Comfortable
Respiratory: Non Labored Respirations; Negative Accessory Resp Muscle Use
Cardiac: Regular Rhythm and S1/S2; Negative Tachycardic
Musculoskeletal: Other (right leg in dressing)
Neuro: AO x 3
Psych: Calm
[2025-06-23] MEDS: ROXICODONE 5 MG PO (16:34)
[2025-06-23] MEDS: ALDACTONE PO (16:45)
--- NOTE | 2025-06-23 18:27 | CM ---
Pt continues with IV ABX for 24 more hours and wound care. Pt is afebrile. IMM given and place on chart. Pt to resume care with [facility]- accepted
Plan: Home with [facility]
[2025-06-23] MEDS: SANTYL OINTMENT 1 APPLIC TOPICAL (20:49)
[2025-06-23] MEDS: TOPROL XL 50 MG PO (21:33)
[2025-06-23 23:56] VITALS: BP 123/59
[2025-06-24] MEDS: ANCEF 10 IV (05:26)
[2025-06-24] MEDS: TYLENOL 650 MG PO (05:34)
[2025-06-24 06:00] VITALS: BMI 42.3
[2025-06-24 07:18] VITALS: BP 152/84
--- NOTE | 2025-06-24 08:46 | PN.CDI ---
CDI
- -
CDI:
Physician Documentation Request
Admit Date: 06/19/25 18:10
Dear Doctor Balbir,
Clinical Indicators:
Patient admitted with RLE traumatic wound with suture dehiscence and cellulitis.
06/20 Surgical consult, 'Sutures removed at bedside with bedside debridement of a portion of the necrotic skin at the distal wound edge'
Could you provide, in the progress notes further clarification regarding the debridement.
Please specify the type of debridement performed:
1. Excisional Debridement - defined as removal by excision of devitalized tissue, necrosis or slough
2. Non-excisional debridement - defined as removal of devitalized tissue, necrosis or slough by such methods as
irrigation, brushing, scrubbing or washing.
If the debridement was excisional, please also include:
1. Type of instrument used (#11 blade, #15 blade etc.)
Use of terms such as suspected, likely, concern for, or probable (associated with a specific diagnosis that is being evaluated, monitored, or treated as if it exists) are acceptable and can be coded in the inpatient setting, when documented at the
time of discharge.
Thank you,
ELIER Ochoa RN
CDI Specialist
available via tiger text
Please use your independent medical judgment in providing your response.
[2025-06-24] MEDS: COZAAR 50 MG PO (08:53)
[2025-06-24] MEDS: LASIX 20 MG PO (08:53)
[2025-06-24] MEDS: VISBIOME 1 CAP PO (08:53)
[2025-06-24] MEDS: ELIQUIS 5 MG PO (08:53)
[2025-06-24] MEDS: SANTYL OINTMENT 1 APPLIC TOPICAL (08:54)
[2025-06-24] MEDS: PACERONE 200 MG PO (08:54)
[2025-06-24 11:33] VITALS: BP 111/57
--- NOTE | 2025-06-24 13:12 | W.DS.TRANS ---
DC Summary - [employer]
-
Discharge Instructions:
Discharge Diagnosis/Procedures Impression
Infected right lower extremity wound with
cellulitis
Conditions prior to admission:
Paroxysmal atrial fibrillation
Anticoagulation with apixaban
Chronic CHF preserved EF
Essential hypertension
Dyslipidemia
Prediabetes
CKD stage IIIb
Morbid obesity due to excessive calories with
BMI of 41
History of squamous cell carcinoma of the scalp
status postresection and radiation treatment
Diet Regular
Bathing Restrictions OK to Shower
Instructions:
Stand-Alone Forms:
Changes to Home Medications: Yes
Discharge Medications:
DC Medications w/original date entered in [facility]
amiodarone 200 mg tablet 200 mg PO DAILY Heart Disease/Condition 06/19/25
apixaban 5 mg tablet (Eliquis) 5 mg PO BID Blood Clot Prevention/Tx 06/19/25
cholecalciferol (vitamin D3) 50 mcg (2,000 unit) tablet (Vitamin D3) 50 mcg PO DAILY Supplement 06/19/25
evolocumab 140 mg/mL subcutaneous pen injector (Repatha SureClick) 140 mg SC Q2W High Cholesterol 06/19/25
furosemide 20 mg tablet 20 mg PO BID Fluid Retention/Swelling 06/19/25
losartan 100 mg tablet 50 mg PO DAILY Blood Pressure 06/19/25
metoprolol succinate 50 mg tablet,extended release 24 hr 50 mg PO HS Blood Pressure 06/19/25
spironolactone 25 mg tablet 25 mg PO QPM Fluid Retention/Swelling 06/19/25
cephalexin 500 mg capsule 500 mg PO Q8H #15 caps 06/24/25
Home Medication Changes
coplete antibiotic course
Pending Results: No
--- NOTE | 2025-06-24 14:15 | CM ---
Pt is discharged to home with [facility].
fax#: [phone]
== END 2025-06-24 15:16 | disposition home health service (06) | DRG 902 ==
LOC: 4 EAST ACU 18:10
PROVIDERS: Internal Medicine; Physician Assistant Medical; ADMITTING PHYSICIAN Hospitalist; ATTENDING PHYSICIAN Internal Medicine; CONSULT PHYSICIAN Surgery; EMERGENCY PHYSICIAN Emergency Medicine
PROC: 0JBN0ZZ Excision of Right Lower Leg Subcutaneous Tissue and Fascia, Open Approach (ICD-10-PCS; 2025-06-20)
DX: T81.33XA Disruption of traumatic injury wound repair, initial encounter (principal); E11.52 Type 2 diabetes mellitus with diabetic peripheral angiopathy with gangrene; L03.115 Cellulitis of right lower limb; I50.32 Chronic diastolic (congestive) heart failure; I13.0 Hypertensive heart and chronic kidney disease with heart failure and stage 1 through stage 4 chronic kidney disease, or unspecified chronic kidney disease; Z68.41 Body mass index [BMI] 40.0-44.9, adult; I48.0 Paroxysmal atrial fibrillation; N18.32 Chronic kidney disease, stage 3b; E11.22 Type 2 diabetes mellitus with diabetic chronic kidney disease; E66.01 Morbid (severe) obesity due to excess calories; Y83.8 Other surgical procedures as the cause of abnormal reaction of the patient, or of later complication, without mention of misadventure at the time of the procedure; Z79.01 Long term (current) use of anticoagulants; Z79.899 Other long term (current) drug therapy
CPT/HCPCS: 73701; 80048; 80053; 82962; 83036; 83605; 85025; 85027; 87040; 87070; 87147; 87205; 87324; 87449; 90715; 96365; 96366; 99285; Q9967

== ENCOUNTER → 2025-07-01 12:36 | Outpatient (REF) | payer MEDICARE, OTHER, SELFPAY | LOC: WOUND 12:36 | PROVIDERS: ATTENDING PHYSICIAN Surgery | DX: L97.212 Non-pressure chronic ulcer of right calf with fat layer exposed (principal); C71.9 Malignant neoplasm of brain, unspecified | CPT/HCPCS: 11042; 99203 ==

== ENCOUNTER → 2025-07-08 11:32 | Outpatient (REF) | payer MEDICARE, OTHER, SELFPAY | LOC: WOUND 11:32 | PROVIDERS: ATTENDING PHYSICIAN Surgery | DX: L97.212 Non-pressure chronic ulcer of right calf with fat layer exposed (principal); C71.9 Malignant neoplasm of brain, unspecified | CPT/HCPCS: 11042; 11045 ==

== ENCOUNTER 2025-07-18 14:28 | Outpatient (REF) | payer MEDICARE, OTHER, SELFPAY | END 2025-07-18 23:59 | disposition home or self-care (01) | LOC: WOUND 14:28 | PROVIDERS: ATTENDING PHYSICIAN Surgery | DX: L97.212 Non-pressure chronic ulcer of right calf with fat layer exposed (principal); C71.9 Malignant neoplasm of brain, unspecified | CPT/HCPCS: 11042 ==

== ENCOUNTER 2025-08-12 13:26 | Outpatient (REF) | payer MEDICARE, OTHER, SELFPAY | END 2025-08-12 23:59 | disposition home or self-care (01) | LOC: WOUND 13:26 | PROVIDERS: ATTENDING PHYSICIAN Registered Nurse | DX: L97.212 Non-pressure chronic ulcer of right calf with fat layer exposed (principal); C71.9 Malignant neoplasm of brain, unspecified | CPT/HCPCS: 99213 ==